=== PATIENT | male | born 1945 | race Caucasian/White ===

== ENCOUNTER 2016-12-22 07:17 | Day surgery (SDC) | payer MEDICARE, OTHER ==
[2016-12-22] MEDS ORDERED: LACTATED RINGERS 300 ML IV ONE (09:16)
[2016-12-22] MEDS ORDERED: MIDAZOLAM 2 MG/2 ML VIAL IVP ONE (09:16)
[2016-12-22] MEDS ORDERED: fentaNYL 100 MCG/2 ML VIAL IVP ONE (09:16)
[2016-12-22] MEDS ORDERED: LACTATED RINGERS 1,000 ML IV ONE (10:07)
[2016-12-22 10:41] VITALS: BP 103/73
== END 2016-12-22 07:18 | disposition home or self-care (01) ==
LOC: SDS 07:17
PROVIDERS: ATTEND Surgery
PROC: 0DBP8ZZ Excision of Rectum, Via Natural or Artificial Opening Endoscopic (ICD-10-PCS; 2016-12-22)
PROC: 0DBH8ZZ Excision of Cecum, Via Natural or Artificial Opening Endoscopic (ICD-10-PCS; principal; 2016-12-22 08:30)
DX: R19.5 Other fecal abnormalities (principal); K62.1 Rectal polyp; D12.0 Benign neoplasm of cecum; K64.8 Other hemorrhoids; Z87.891 Personal history of nicotine dependence; E78.5 Hyperlipidemia, unspecified; F41.9 Anxiety disorder, unspecified
CPT/HCPCS: 45385; J7120; 88305

== ENCOUNTER 2017-03-02 14:46 | Outpatient (CLI) | payer MEDICARE, OTHER ==
--- NOTE | 2017-03-03 08:47 | XRAY Report ---
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 FINDINGS: AP, lateral, oblique views of the right foot demonstrate osteoarthritic changes of the int erphalangeal joints and 5th metatarsophalangeal joint. There is no evidence of fracture or dislocati on. IMPRESSION: OSTEOARTHRITIS. JOB #: [id number] EXT JOB #:[id number]
== END 2017-03-02 14:47 | disposition home or self-care (01) ==
LOC: DI.S 14:46
PROVIDERS: ATTEND Nurse Practitioner Family
DX: M19.071 Primary osteoarthritis, right ankle and foot (principal)

== ENCOUNTER 2019-03-21 09:57 | Outpatient (CLI) | payer MEDICARE, OTHER ==
--- NOTE | 2019-03-21 16:17 | XRAY Report ---
Reason: PAIN IN RIGHT HIP, M25.551 Procedure Date: 03/21/2019 Accession Number: [id number] / [id number] Procedure: XRS - Hip w/Pelvis 2-3V RT CPT Code: FULL RESULT: EXAM: RIGHT HIP RADIOGRAPHY EXAM DATE: 03/21/2019 10:11 AM. CLINICAL HISTORY: PAIN IN RIGHT HIP, M25. 551. COMPARISON: None. TECHNIQUE: 2 views. FINDINGS: Bones: Normal. No fractures or bone lesion. Joints: Relatively symmetric mild narrowing of hip joints with marginal osteophytosis. Pubic symphysis and sacroiliac joints are unremarkable as seen. Soft Tissues: Vascular calcifications. IMPRESSION: Mild degenerative changes without fracture or dislocation detected. RADIA
== END 2019-03-21 09:58 | disposition home or self-care (01) ==
LOC: DI.S 09:57
PROVIDERS: ATTEND Physician Assistant
DX: M16.11 Unilateral primary osteoarthritis, right hip (principal)

== ENCOUNTER 2019-09-14 12:37 | Outpatient (CLI) | payer MEDICARE, OTHER ==
[2019-09-14] MEDS ORDERED: REGADENOSON 0.4 MG/5 ML SYRINGE IVP ONE ×2 (15:42→21:54)
--- NOTE | 2019-09-14 17:06 | CARDIAC PROCEDURE NOTE ---
DATE OF SERVICE: 09/14/2019 Physician: Sophia Edmond MD, [facility] INDICATION: Abnormal EKG, dyspnea on exertion. CARDIAC RISK FACTORS: Male gender, advanced age, family history of heart disease. DESCRIPTION OF PROCEDURE: After signing informed consent, the patient underwent a Lexiscan pharmaceutical stress test with nuclear myocardial perfusion imaging. RESTING HEART RATE: 92. PEAK HEART RATE: 108. RESTING BLOOD PRESSURE: 136/70. PEAK BLOOD PRESSURE: 111/69. Lexiscan was infused per protocol. The patient had no chest pain, only brief shortness of breath. Oxygen saturation was 98-99% on room air during the entire test. RESTING EKG: Normal sinus rhythm, within normal limits. EKG AT PEAK: New T-wave flattening in leads II, III, aVF, and V3 through V6. These T-wave changes resolved back to baseline after 1 minute. SUMMARY: 1. Normal resting EKG. 2. T-wave changes develop after pharmaceutical stress, these are consistent with ischemia. 3. Nuclear images reported separately. 4. This patient's coronary risk based on all the above: Moderate to High. cc: AMY Vega TD: 09/14/2019 16:22 MTDAjay
--- NOTE | 2019-09-15 11:08 | Nuclear Medicine Report ---
Reason: ABN EKG Procedure Date: 09/14/2019 Accession Number: [id number] / [id number] Procedure: NM - Myocardial Perfusion STR/RST CPT Code: Final Report FULL RESULT: EXAM: SINGLE-ISOTOPE PHARMACOLOGICAL STRESS TEST WITH REGADENOSON. SINGLE-ISOTOPE AND ONE-DAY REST/STRESS MYOCARDIAL PERFUSION SCANS WITH TOMOGRAPHIC IMAGING, QUANTITATIVE ANALYSIS, WALL MOTION ANALYSIS AND CALCULATION OF EJECTION FRACTION. EXAM DATE: 09/14/2019 05:15 PM. CLINICAL HISTORY: ABN EKG. COMPARISON: None. TECHNIQUE: After the intravenous administration of 10.2 mCi of Tc-99m sestamibi, a rest myocardial perfusion scan was done with tomography. Motion correction was applied when appropriate. After an appropriate delay, pharmacological stress was performed with the infusion of 0.4 mg regadenoson per protocol. According to protocol, 41.7 mCi of Tc-99m sestamibi was injected for stress myocardial perfusion scan. Motion correction was applied when appropriate. Gated tomographic images were obtained for wall motion analysis and computation of left ventricular ejection fraction. FINDINGS: Perfusion images: Left ventricular chamber size appears normal at rest and unchanged at stress. No convincing fixed perfusion deficits. No convincing reversible perfusion deficits. SSS 0, SRS 0, SDS 0. Gated images: No convincing focal wall motion abnormality. Calculated left ventricular EDV 86 mL, ESV 29 mL. The left ventricular ejection fraction is estimated at 67% (normal > 50%). IMPRESSION: 1. No convincing reversible perfusion deficits to indicate stress-induced ischemia. 2. No convincing fixed perfusion deficits. 3. Left ventricular ejection fraction of 2 7% (normal > 50%). Please correlate findings with stress ECG tracings and procedure notes. RADIA
== END 2019-09-14 12:38 | disposition home or self-care (01) ==
LOC: DI 12:37
PROVIDERS: ATTEND Nurse Practitioner Family
DX: I25.9 Chronic ischemic heart disease, unspecified (principal); R06.09 Other forms of dyspnea; Z82.49 Family history of ischemic heart disease and other diseases of the circulatory system
CPT/HCPCS: 78452; 93017; A9500; J2785

== ENCOUNTER 2019-10-20 14:49 | Outpatient (CLI) | payer MEDICARE, OTHER ==
--- NOTE | 2019-10-20 22:41 | XRAY Report ---
Reason: DYSPNEA Procedure Date: 10/20/2019 Accession Number: [id number] / [id number] Procedure: XR - Chest 2 View X-Ray CPT Code: 18216 Final Report FULL RESULT: EXAM: CHEST RADIOGRAPHY EXAM DATE: 10/20/2019 02:57 PM. CLINICAL HISTORY: Dyspnea for several months. COMPARISON: None. TECHNIQUE: 2 views. FINDINGS: Lungs/Pleura: There is a small area of somewhat linear, irregular opacity in the lateral aspect of the right upper lung, projecting between the right posterior fourth and fifth ribs. This measures approximately 2.6 cm in length. No correlate identified on lateral view. Lungs are otherwise clear. No pleural effusion or pneumothorax. Mediastinum: Cardiomediastinal silhouette is within normal limits. Pulmonary vasculature is unremarkable. Other: Moderate-severe multilevel degenerative disk disease present in the thoracic spine. IMPRESSION: Somewhat linear, irregular opacity projecting over the lateral right upper lung is nonspecific. It may represent a pulmonary parenchymal finding (such as infiltrate or scarring) or density in the overlying soft tissues. Follow-up chest CT is recommended in 6-8 weeks. Given the relative chronicity of the patient's symptoms, consider noncontrast chest CT for further evaluation. RADIA
== END 2019-10-20 14:50 | disposition home or self-care (01) ==
LOC: DI 14:49
PROVIDERS: ATTEND Internal Medicine Cardiovascular Disease
DX: R91.8 Other nonspecific abnormal finding of lung field (principal)
CPT/HCPCS: 71046

== ENCOUNTER 2019-11-17 10:43 | Outpatient (CLI) | payer MEDICARE, OTHER ==
--- NOTE | 2019-11-18 02:45 | CT Report ---
Reason: ABNORMAL FINDINGS Procedure Date: 11/17/2019 Accession Number: [id number] / [id number] Procedure: CT - CHEST WO CPT Code: Final Report FULL RESULT: EXAM: CT CHEST EXAM DATE: 11/17/2019 10:59 AM. CLINICAL HISTORY: Follow-up of abnormal findings on CXR. COMPARISONS: CXR dated 10/20/2019. TECHNIQUE: Routine helical CT imaging was performed through the chest. IV contrast: None. Reconstructions: Coronal and sagittal. In accordance with CT protocol optimization, one or more of the following dose reduction techniques were utilized for this exam: automated exposure control, adjustment of mA and/or KV based on patient size, or use of iterative reconstructive technique. FINDINGS: Lungs/Pleura: Mild biapical scarring and calcifications. Mild centrilobular emphysema. No focal consolidation, pulmonary edema or significant bronchial wall thickening. Right lower lobe 5 mm pulmonary nodule. Left upper lobe 2 mm pulmonary nodule. Punctate calcification in left upper lobe near apex. No pleural effusion or pneumothorax. Mediastinum: Normal cardiac size. No pericardial effusion. Atherosclerotic vascular disease including coronary artery disease. No thoracic aortic aneurysm. No mediastinal lymphadenopathy by CT size criteria. Bones: Bones are mildly osteopenic. Osseous degenerative changes are present. No acute bony findings. Visualized Abdomen: No acute findings in the visualized upper abdomen. Other: None. IMPRESSION: 1. No abnormality corresponding to recent radiographic finding. No acute cardiopulmonary findings on noncontrast CT. 2. Mild central upper emphysema and biapical scarring. 3. Right lower lobe 5 mm pulmonary nodule and left upper lobe 2 mm pulmonary nodule. If high-risk patient, follow-up CT at 12 months is optional per Fleischner guidelines. 4. Atherosclerotic vascular disease including coronary artery calcifications. No thoracic aortic aneurysm. RADIA
== END 2019-11-17 10:44 | disposition home or self-care (01) ==
LOC: DI 10:43
PROVIDERS: ATTEND Physician Assistant
DX: J43.9 Emphysema, unspecified (principal); R91.8 Other nonspecific abnormal finding of lung field; I25.10 Atherosclerotic heart disease of native coronary artery without angina pectoris; I70.90 Unspecified atherosclerosis
CPT/HCPCS: 71250

== ENCOUNTER 2020-06-15 15:01 | Outpatient (CLI) | payer MEDICARE, OTHER ==
--- NOTE | 2020-06-15 16:49 | XRAY Report ---
PROCEDURE: Foot 3 View RT INDICATIONS: BUNION OF RIGHT FOOT TECHNIQUE: 3 views of the foot were acquired. COMPARISON: X-ray foot 03/02/2017 FINDINGS: Bones: No fractures or dislocations. No suspicious bony lesions. Mild angulation and IP degenerati ve narrowing at the fifth MTP joint. Overall appearance is stable compared to prior exam. Scattered a reas of IP degenerative narrowing particularly at the DIP joints are again noted. Soft tissues: No tibiotalar joint effusion. Achilles tendon appears normal. IMPRESSION: Degenerative changes as above, relatively stable compared to prior exam. Reviewed by: Jammie Cooley MD on 06/15/2020 4:48 PM PST Approved by: Jammie Cooley MD on 06/15/2020 4:48 PM PST Station ID: [id number]
== END 2020-06-15 15:02 | disposition home or self-care (01) ==
LOC: DI.S 15:01
PROVIDERS: ATTEND Physician Assistant
DX: M19.071 Primary osteoarthritis, right ankle and foot (principal)

== ENCOUNTER 2021-07-20 09:42 | Outpatient (CLI) | payer MEDICARE, OTHER ==
--- NOTE | 2021-07-22 10:45 | CT Report ---
PROCEDURE: CHEST WO INDICATIONS: MULTIPLE LUNG NODULES TECHNIQUE: Noncontrast 1mm axial images were acquired from the pulmonary apices to the posterior costophrenic an gles. Axial 5 mm soft tissue kernel reconstructions were performed as well as 8 mm axial MIP and cor onal and sagittal 5 mm reformations. For radiation dose reduction, the following was used: automate d exposure control, adjustment of mA and/or kV according to patient size. COMPARISON: 11/17/2019 FINDINGS: Image quality: Good. There is motion at the lung bases.. Lungs and pleura: A 6 mm solid subpleural right lower lobe pulmonary nodule, 4/201 and 4 mm left upp er lobe pulmonary nodule, 4/172, are stable. A 3 mm lateral right middle lobe nodule, 4/196, subpleur al anterior right middle lobe nodule measuring 4 mm, 4/234 and an apical left upper lobe nodule, /52 are stable, not previously mentioned. A small patch of tree-in-bud nodularity present laterally in t he right upper lobe at a midlung level is new. No dense air space opacities. No pleural effusions or pneumothorax. Central and peripheral airways are patent and normal in caliber. Mediastinum: Heart size is normal. Moderate coronary artery calcification. No pericardial effusion. No mediastinal adenopathy by size criteria. Thoracic aorta and central pulmonary arteries are norm al in size. Esophagus is normal in caliber. No hiatal hernia. Bones and chest wall: No suspicious bony lesions. Multilevel degenerative disc changes throughout t he thoracic spine. No vertebral body compression fractures. No axillary or supraclavicular adenopath y by size criteria. The thyroid is normal in size and there are no incidental findings. Abdomen: Visualized upper abdominal solid organs and bowel loops appear normal in the absence of con trast. IMPRESSION: 1. Multiple stable bilateral lung nodules, and 1 mm of growth of the largest right lower lobe lung no dule. Follow-up chest CT in 6 months is recommended to document greater than 2 years of stability of most nodules and continued surveillance of largest right lower lobe nodule. 2. Small area of nodularity in the right upper lobe is most likely postinflammatory/postinfectious. 3. Moderate coronary artery calcification. Reviewed by: Radha Mooney MD on 07/22/2021 10:44 AM PST Approved by: aRdha Mooney MD on 07/22/2021 10:44 AM PST Station ID: [id number]
== END 2021-07-20 09:43 | disposition home or self-care (01) ==
LOC: DI 09:42
PROVIDERS: ATTEND Physician Assistant
DX: R91.8 Other nonspecific abnormal finding of lung field (principal); I25.10 Atherosclerotic heart disease of native coronary artery without angina pectoris

== ENCOUNTER 2022-04-09 07:10 | Day surgery (SDC) | payer MEDICARE, OTHER ==
--- NOTE | 2022-04-09 07:07 | ANESTHESIA ---
Pre-Anesthesia VS, & Labs - Diagnosis screening - Procedure colonoscopy Height: 5 ft 11 in - NPO Last Fluid Intake: am prep Home Medications and Allergies Home Medications: Ambulatory Orders Albuterol Sulfate [Proair Hfa Inhaler] 1 - 2 puffs INH Q4H PRN 03/31/22 Albuterol Sulfate [Proair Hfa Inhaler] 1 - 2 puffs INH Q4H PRN 03/31/22 Allergies/Adverse Reactions: Allergies Allergy/AdvReac Type Severity Reaction Status Date / Time No Known Drug Allergies Allergy Verified 12/19/16 13:34 Anes History & Medical History - Anesthetic History Anesthesia Complications: reports: No previous complications Family history of Anesthesia Complications: Denies Family history of Malignant Hyperthermia: Denies - Medical History Cardiovascular: reports: High cholesterol Pulmonary: reports: COPD Gastrointestinal: reports: Colon polyps Urinary: reports: None Musculoskeletal: reports: Osteoarthritis Endocrine/Autoimmune: reports: None Skin: reports: None - Surgical History General: reports: Colonoscopy, Other Eyes Ears Nose Throat (EENT): reports: Other Exam General: Alert, Oriented x3, Cooperative Mallampati classification: II Thyromental Distance: greater than 6 cm Respiratory: Lungs clear, Normal breath sounds, No respiratory distress Mental/Cognitive Status: Alert/Oriented X3, Normal for patient Cognitive Status: Within normal limits Plan Anesthesia Type: Total IV Consent for Procedure(s) Verified and Reviewed: Yes Code Status: Attempt Resuscitation ASA classification: 2-Mild systemic disease Is this case an emergency?: No
[~2022-04-09 07:10] MED LIST: PROPOFOL 500 MG/50 ML 0 MG/0 ML VIAL ONE
--- NOTE | 2022-04-09 07:24 | ANESTHESIA ---
Pre-Anesthesia VS, & Labs - Diagnosis screening - Procedure colonoscopy Height: 5 ft 11 in - NPO >8 hours Last Fluid Intake: am prep Home Medications and Allergies Home Medications: Ambulatory Orders Albuterol Sulfate [Proair Hfa Inhaler] 1 - 2 puffs INH Q4H PRN 03/31/22 Albuterol Sulfate [Proair Hfa Inhaler] 1 - 2 puffs INH Q4H PRN 03/31/22 Allergies/Adverse Reactions: Allergies Allergy/AdvReac Type Severity Reaction Status Date / Time No Known Drug Allergies Allergy Verified 04/09/22 07:40 Anes History & Medical History - Anesthetic History Anesthesia Complications: reports: No previous complications Family history of Anesthesia Complications: Denies Family history of Malignant Hyperthermia: Denies - Medical History Cardiovascular: reports: High cholesterol Pulmonary: reports: COPD Gastrointestinal: reports: Colon polyps Urinary: reports: None Musculoskeletal: reports: Osteoarthritis Endocrine/Autoimmune: reports: None Skin: reports: None - Surgical History General: reports: Colonoscopy, Other Eyes Ears Nose Throat (EENT): reports: Other Exam General: Alert, Oriented x3, Cooperative Dental: WNL Mouth Openin Fingerbreadth Mallampati classification: II Thyromental Distance: 4-6 cm Respiratory: Lungs clear, Normal breath sounds, No respiratory distress Cardiovascular: Regular rate Plan Anesthesia Type: Total IV Consent for Procedure(s) Verified and Reviewed: Yes Code Status: Attempt Resuscitation ASA classification: 2-Mild systemic disease Is this case an emergency?: No
[2022-04-09] MEDS ORDERED: LACTATED RINGERS 1,000 ML IV ONE ×2 (07:37→08:55)
[2022-04-09] MEDS ORDERED: PROPOFOL 500 MG/50 ML 500 MG/50 ML VIAL ONE (08:02)
[2022-04-09] MEDS ORDERED: LIDOCAINE-MPF 2% 5 ML VIAL ONE (08:43)
[2022-04-09] MEDS ORDERED: GLYCOPYRROLATE 1 MG/5 ML VIAL ONE (08:50)
[2022-04-09 09:39] VITALS: BP 104/60
--- NOTE | 2022-04-09 09:46 | ANESTHESIA POST OP EVALUATION ---
Anesthesia Post Eval - Post Anesthesia Eval Vitals: Last Vital Signs Temp 36.6 C 04/09/22 09:35 Pulse 73 04/09/22 09:35 Resp 16 04/09/22 09:35 BP 104/60 04/09/22 09:35 Pulse Ox 100 04/09/22 09:35 CV Function Including HR & BP: Stable Pain Control: Satisfactory Nausea & Vomiting: Negative Mental Status: Baseline Respiratory Status: Airway Patent Hydration Status: Satisfactory Anesthesia Complications: None
== END 2022-04-09 07:11 | disposition home or self-care (01) ==
LOC: SDS 07:10
PROVIDERS: ATTEND Surgery
DX: Z12.11 Encounter for screening for malignant neoplasm of colon (principal); K64.8 Other hemorrhoids; Z80.3 Family history of malignant neoplasm of breast; Z80.42 Family history of malignant neoplasm of prostate; Z80.9 Family history of malignant neoplasm, unspecified; Z86.010 Personal history of colon polyps; Z87.891 Personal history of nicotine dependence

== ENCOUNTER 2022-05-11 15:59 | Outpatient (CLI) | payer MEDICARE, OTHER | END 2022-05-11 16:00 | disposition critical access hospital (66) | LOC: EMS 15:59 | DX: S61.011A Laceration without foreign body of right thumb without damage to nail, initial encounter (principal); W31.2XXA Contact with powered woodworking and forming machines, initial encounter; Y92.009 Unspecified place in unspecified non-institutional (private) residence as the place of occurrence of the external cause | CPT/HCPCS: A0425; A0429 ==

== ENCOUNTER 2022-05-11 16:32 | Emergency (ER) | payer MEDICARE, OTHER ==
--- NOTE | 2022-05-11 16:34 | ED Physician Documentation ---
PD HPI UPPER EXT INJURY - Stated complaint Stated Complaint: THUMB LAC - History obtained from History obtained from: Patient, EMS - History of Present Illness Location: Right, Finger (thumb at IP joint.) Type of injury: Laceration (Working with a table saw and he is not sure exactly what happened but the board bucked and his thumb went through into the blade. Laceration with significant bleeding. He called EMS.) Where injury occurred: Home Timing - onset: Today (shortly [employer]) Timing - details: Abrupt onset, Still present Worsened by: Moving, Palpating Associated symptoms: Weakness, Numbness (in distal thumb) Contributing factors: No: Anticoagulated Similar symptoms before: Has not had sx before Recently seen: Not recently seen Review of Systems Constitutional: denies: Fever, Chills Nose: denies: Rhinorrhea / runny nose, Congestion Throat: denies: Sore throat Respiratory: denies: Cough PD PAST MEDICAL HISTORY - Past Medical History Cardiovascular: High cholesterol Respiratory: COPD Endocrine/Autoimmune: None GI: Colon polyps : None HEENT: Chronic vision loss, Dental implants, Other Psych: None Musculoskeletal: Osteoarthritis, Other (he is right hand dominant.) Derm: None - Past Surgical History General: Colonoscopy, Other HEENT: Other - Present Medications Home Medications: Ambulatory Orders Medication Instructions Recorded Confirmed cephALEXin [Keflex] 500 mg PO Q6H #20 cap 05/11/22 oxyCODONE/ACET 5/325 [Percocet 5 1 each PO Q4-6H #14 tablet 05/11/22 mg/325 mg] - Allergies Allergies/Adverse Reactions: Allergies Allergy/AdvReac Type Severity Reaction Status Date / Time No Known Drug Allergies Allergy Verified 04/09/22 07:40 PD ED PE NORMAL - Vitals Vital signs reviewed: Yes - General General: Alert and oriented X 3, Well developed/nourished - Derm Derm: Normal color, Warm and dry - Extremities Extremities: Other (The left thumb shows a deep laceration consistent with table saw injury of the right thumb at the IP joint. It extends through the bone and apparent flexor and extensor tendons. There is still tissue intact on the radial volar side. Capillary refill is present in the tip segment of the thumb.) - Neuro Neuro: Alert and oriented X 3, Normal speech, Other (Motor and sensory deficit noted at the level of the laceration. The distal segment of the thumb is loose held by soft tissue only. No flexion or extension ability. No sensation to touch or pinprick distally.) Results - Vitals Vitals: Vital Signs - 24 hr 05/11/22 05/11/22 05/11/22 16:42 18:44 20:00 Temperature 37.2 C 36.7 C Heart Rate 74 70 75 Respiratory 18 19 16 Rate Blood Pressure 150/84 H 132/3 H 146/91 H O2 Saturation 95 96 96 Oxygen O2 Source Room air - Labs Labs: Laboratory Tests 05/11/22 05/11/22 05/11/22 16:58 16:58 18:37 WBC 5.5 RBC 4.15 L Hgb 12.9 L Hct 39.7 L MCV 95.7 H MCH 31.1 H MCHC 32.5 RDW 13.3 Plt Count 212 MPV 9.2 Neut # (Auto) 3.4 Lymph # (Auto) 1.3 L [place] # (Auto) 0.5 Eos # (Auto) 0.1 Baso # (Auto) 0.0 Absolute Nucleated RBC 0.00 Nucleated RBC % 0.0 Sodium 138 Potassium 3.8 Chloride 100 L Carbon Dioxide 30 Anion Gap 8.0 BUN 14 Creatinine 0.7 Estimated GFR (MDRD) 109 Glucose 131 H Calcium 9.0 SARS-CoV-2 (PCR) NOT DETECTED - Rads (name of study) right thumb Radiology: Prelim report reviewed (comminuted fracture at distal phalanx/IP joint of right thumb. ), See rad report Procedures - Laceration (location) right thumb Length in cm: 4 Wound type: Stellate, Into muscle, Clean, Exposure of bone Neurovascular status: Vascular intact (cap refill present in distal phalanx segment.) Anesthesia: Lidocaine 2%, Marcaine 0.5%, Other (local and digital block.) Wound preparation: Irrigated copiously NS, Wound explored, To the base Skin layer closure: Nylon, Interrupted, Size #-0 - enter number (4), Other (distal lacerated phalanx approximated into position with sutures.) Other: Dressing applied, Tetanus booster given PD MEDICAL DECISION MAKING - ED course Complexity details: reviewed results, considered differential (The patient has a injury through the IP joint of the thumb involving the bone and flexor tendons. There does seem to be vascularity with capillary refill in the distal segment coming from the radial side.), d/w patient, d/w technology sales consultant ([facility] calling trauma center hand surgeon for advice/follow up versus transfer. ) ED course: at shift change, we are still awaiting call back from Hand Surgery at [facility]. Departure - Departure Disposition: 01 Home, Self Care Clinical Impression: Contact with powered saw as cause of accidental injury Thumb laceration Qualifiers: Encounter type: initial encounter Damage to nail status: with damage Foreign body presence: without foreign body Laterality: right Qualified Code(s): S61.111A - Laceration without foreign body of right thumb with damage to nail, initial encounter Condition: Stable Record reviewed to determine appropriate education?: Yes Instructions: ED Laceration Hand Follow-Up: [facility] [Provider Group] Prescriptions: cephALEXin [Keflex] 500 mg PO Q6H #20 cap oxyCODONE/ACET 5/325 [Percocet 5 mg/325 mg] 1 each PO Q4-6H #14 tablet Comments: You were evaluated for an injury to your right thumb. The wound was cleaned and loosely sutured. You will need close follow-up with a hand surgeon as you have injury to the bone as well as the tendons of the digit. I have spoken to the hand surgeon at [facility], Dr. Howard. The hand clinic office will call you tomorrow or Thursday for close follow-up. Their phone number is [phone]. Please call them at Thursday afternoon if you have not heard from them. We have applied a splint which she should continue to keep on it. I have also sent a prescription for 5 days of an antibiotic called Cait to [facility] in [place]. I will also send a prescription for narcotic pain medication. [facility] ([facility] [place]) Location Address: [facility], 6th Floor [address] [place] [address] (HAND) Please return to the emergency department with any concerning symptoms such as increased pain, bleeding. I am prescribing a short course of narcotic pain medication for you. These are potentially dangerous and addictive medications that should be used carefully. These medications may constipate you. Take an yacb-zng-wbrfnuu stool softener (docusate) twice daily with plenty of water while taking these medications. If you go 24 hours without a bowel movement, take izfb-zsg-aqopurj miralax, per package instructions. Do not drink or drive while taking these medications. If you received narcotic or sedating medications while in the emergency department, do not drive for 24 hours. Store this medication in a safe, secure place and out of reach of children. It is a violation of federal law to give or sell this medication to another person or to use in a manner other than prescribed. The ED will not refill narcotic prescriptions, including prescriptions lost or stolen. To dispose of unwanted medications: 1. [facility] at [address] in [place] has a medication drop box. They accept prescription medications (in pill form) Thursday through Thursday 9:00 a.m. to 5:00 p.m. 2. The [facility] [employer] accepts prescription medications (in pill form only) for disposal year round. Call for more information. 3. Contact the [facility] for the next [facility] sponsored prescription drug collection event. , [phone], or [phone]; Note that many narcotic pain relievers also contain Tylenol/acetaminophen. Please ensure that your total dose of acetaminophen from all sources does not exceed 3 g (3000 mg) per day. Discharge Date/Time: 05/11/22 20:20
[2022-05-11] MEDS ORDERED: KETOROLAC 15 MG/ML VIAL IVP STA (16:45)
[2022-05-11] MEDS ORDERED: ceFAZolin 1 GM in SODIUM CHLORIDE 0.9% MINIBAG 100 ML IV STA (16:45)
[2022-05-11] MEDS ORDERED: TETANUS/DIPHTHERIA/PERTUSSIS 0.5 ML SYRINGE IM ONE (16:46)
[2022-05-11 17:04] LABS: BASOPHILS % (AUTO) 0.5 %; EOSINOPHILS # (AUTO) 0.1 10^3/uL (0.0-0.7); EOSINOPHILS % (AUTO) 2.6 %; HCT - HEMATOCRIT 39.7 % (42.0-52.0); HGB - HEMOGLOBIN 12.9 g/dL (14.0-18.0); LYMPHOCYTES # (AUTO) 1.3 10^3/uL (1.5-3.5); LYMPHOCYTES % (AUTO) 24.5 %; MEAN CORPUSCULAR HEMOGLOBIN 31.1 pg (27.0-31.0); MEAN CORPUSCULAR HGB CONC 32.5 g/dL (32.0-36.0); MEAN CORPUSCULAR VOLUME 95.7 fL (80.0-94.0); MEAN PLATELET VOLUME 9.2 fL (7.4-11.4); MONOCYTES # (AUTO) 0.5 10^3/uL (0.0-1.0); MONOCYTES % (AUTO) 9.7 %; NEUTROPHILS # (AUTO) 3.4 10^3/uL (1.5-6.6); NEUTROPHILS % (AUTO) 62.3 %; PLT - PLATELET COUNT 212 10^3/uL (130-450); RED BLOOD COUNT 4.15 10^6/uL (4.70-6.10); RED CELL DISTRIBUTION WIDTH 13.3 % (12.0-15.0); WHITE BLOOD COUNT 5.5 x10^3/uL (4.8-10.8)
[2022-05-11] MEDS ORDERED: ceFAZolin 1 GM VIAL ONE (17:06)
[2022-05-11 17:12] LABS: CREATININE 0.7 mg/dL (0.6-1.2); POTASSIUM 3.8 mmol/L (3.5-5.0)
[2022-05-11] MEDS ORDERED: HYDROmorphone 1 MG/ML CARPUJECT IVP STA (17:47)
--- NOTE | 2022-05-11 17:49 | XRAY Report ---
PROCEDURE: Finger(s) RT INDICATIONS: thumb right table saw injury TECHNIQUE: AP hand, 2 views of the first finger(s) acquired. COMPARISON: None FINDINGS: There is a angulated fracture through the mid first finger phalanx with lateral angulation of distal fracture fragment. The soft tissues are macerated, fracture through the first distal phalangeal tuft noted as well. Degenerative changes at the first carpometacarpal and triscaphe joint. IMPRESSION: Soft tissue maceration with fractures through the first proximal phalanx and distal phalangeal tuft Reviewed by: Praneeth Laurent MD on 05/11/2022 4:48 PM AKLA Approved by: Praneeth Laurent MD on 05/11/2022 4:48 PM AKDT Station ID: [id number]
[2022-05-11] MEDS ORDERED: oxyCODONE/ACET 5/325 Prepack 4 PO STA (20:03)
[2022-05-11 20:04] VITALS: BP 146/91
--- NOTE | 2022-05-11 20:06 | ED Physician Documentation ---
ED Addendum - Addendum Addendum: 05/11/22 20:03 D/W Dr. Howard (Hand surgeon, [facility]). As distal portion appears still perfused he recommends close outpatient follow-up. He recommends placing the patient in a thumb spica splint, 5 days of Keflex. The hand clinic will call the patient. Their phone number is [phone]. I reviewed these recommendations with the patient and he is comfortable with this plan. Departure - Departure Disposition: 01 Home, Self Care Clinical Impression: Contact with powered saw as cause of accidental injury Thumb laceration Qualifiers: Encounter type: initial encounter Damage to nail status: with damage Foreign body presence: without foreign body Laterality: right Qualified Code(s): S61.111A - Laceration without foreign body of right thumb with damage to nail, initial encounter Condition: Stable Instructions: ED Laceration Hand Follow-Up: [facility] [Provider Group] Prescriptions: cephALEXin [Keflex] 500 mg PO Q6H #20 cap oxyCODONE/ACET 5/325 [Percocet 5 mg/325 mg] 1 each PO Q4-6H #14 tablet Comments: You were evaluated for an injury to your right thumb. The wound was cleaned and loosely sutured. You will need close follow-up with a hand surgeon as you have injury to the bone as well as the tendons of the digit. I have spoken to the hand surgeon at [facility], Dr. Howard. The hand clinic office will call you tomorrow or Thursday for close follow-up. Their phone number is [phone]. Please call them at Thursday afternoon if you have not heard from them. We have applied a splint which she should continue to keep on it. I have also sent a prescription for 5 days of an antibiotic called Keflex to [facility] in [place]. I will also send a prescription for narcotic pain medication. [facility] ([facility]) Location Address: [facility], 6th Floor [address] [place] [address] (HAND) Please return to the emergency department with any concerning symptoms such as increased pain, bleeding. I am prescribing a short course of narcotic pain medication for you. These are potentially dangerous and addictive medications that should be used carefully. These medications may constipate you. Take an dzjw-gbr-qxxpaxa stool softener (docusate) twice daily with plenty of water while taking these medications. If you go 24 hours without a bowel movement, take qees-gtv-[id number] miralax, per package instructions. Do not drink or drive while taking these medications. If you received narcotic or sedating medications while in the emergency department, do not drive for 24 hours. Store this medication in a safe, secure place and out of reach of children. It is a violation of federal law to give or sell this medication to another person or to use in a manner other than prescribed. The ED will not refill narcotic prescriptions, including prescriptions lost or stolen. To dispose of unwanted medications: 1. [facility] at [address] [address] [facility] in [place] has a medication drop box. They accept prescription medications (in pill form) Thursday through Thursday 9:00 a.m. to 5:00 p.m. 2. The [facility] accepts prescription medications (in pill form only) for disposal year round. Call for more information. 3. Contact the [facility] for the next [facility] sponsored prescription drug collection event. , [phone], or [phone]; Note that many narcotic pain relievers also contain Tylenol/acetaminophen. Please ensure that your total dose of acetaminophen from all sources does not exceed 3 g (3000 mg) per day.
== END 2022-05-11 20:20 | disposition home or self-care (01) ==
LOC: EDUNIT# → ED 16:32
DX: S62.511B Displaced fracture of proximal phalanx of right thumb, initial encounter for open fracture (principal); S62.521B Displaced fracture of distal phalanx of right thumb, initial encounter for open fracture; S66.021A Laceration of long flexor muscle, fascia and tendon of right thumb at wrist and hand level, initial encounter; S66.221A Laceration of extensor muscle, fascia and tendon of right thumb at wrist and hand level, initial encounter; S61.111A Laceration without foreign body of right thumb with damage to nail, initial encounter; W31.2XXA Contact with powered woodworking and forming machines, initial encounter; Y93.89 Activity, other specified; Y92.009 Unspecified place in unspecified non-institutional (private) residence as the place of occurrence of the external cause; Z23 Encounter for immunization
CPT/HCPCS: 12002; 36415; 73140; 80048; 85025; 87635; 90471; 90715; 96365; 96375; 99284; J1170; 13132

== ENCOUNTER 2023-04-24 08:00 | Outpatient (CLI) | payer MEDICARE, OTHER ==
--- NOTE | 2023-04-24 15:42 | XRAY Report ---
PROCEDURE: Finger(s) LT INDICATIONS: LEFT INDEX FINGER PAIN TECHNIQUE: AP hand, 2 views of the second finger(s) acquired. COMPARISON: None. FINDINGS: Bones: Minimally displaced fracture through second distal phalangeal tuft is seen. No suspicious bon y lesions. Soft tissues: Soft tissue swelling surrounding distal portion of second digit is noted. Possible fore ign body adjacent to lateral aspect of second proximal phalangeal shaft. IMPRESSION: Minimally displaced second distal phalangeal tuft fracture. Possible foreign body in lateral second digit soft tissue as above. Reviewed by: Eric Belle MD on 04/24/2023 3:41 PM PDT Approved by: Eric Belle MD on 04/24/2023 3:41 PM PDT Station ID: [id number]
== END 2023-04-24 23:59 | disposition home or self-care (01) ==
LOC: DI.S 08:00
PROVIDERS: ATTEND Physician Assistant
DX: S62.631A Displaced fracture of distal phalanx of left index finger, initial encounter for closed fracture (principal)

== ENCOUNTER 2023-09-04 14:51 | Outpatient (CLI) | payer MEDICARE, OTHER ==
--- NOTE | 2023-09-07 08:52 | CT Report ---
PROCEDURE: Chest WO INDICATIONS: LUNG NODULES TECHNIQUE: A CT scan of the chest was performed. Intravenous contrast media was not administered. Images were re corded and evaluated at appropriate window settings. Reformats: axial MIP of the chest, coronal and s agittal. For radiation dose reduction, the following was used: automated exposure control, adjustment of mA and/or kV according to patient size. COMPARISON: CT chest dated 07/20/2021, 03/29/2022. FINDINGS: Image quality: Excellent. Lungs and pleura: Emphysematous lung changes.. No pleural effusions. No pneumothorax. Lungs and pleura: Moderate emphysematous change. No new or enlarging pulmonary nodules. Again a few s mall pulmonary nodules seen; -Right upper lobe solid 0.3 cm, (82) -Right lower lobe pulmonary nodule measuring 0.5 cm, (/79) -Left upper lobe 0.4 cm, (4/60) Unchanged -Right lower lobe nodule, solid, 5 mm (135/4) unchanged Mediastinum: Heart size is normal. No pericardial effusion. No large vessel abnormality. No mediastin al adenopathy by size criteria. Coronary artery calcifications. Chest wall and lower neck: No thyroid nodule seen that requires ultrasound evaluation. No axillary or supraclavicular adenopathy by size. Bones: DJD, scoliosis of the spine, DISH Upper Abdomen: 2.4 cm left renal cystic lesion, likely a simple cyst, but incompletely evaluated with out IV contrast. IMPRESSION: No new or enlarging pulmonary nodule seen. LUNGS RADS 2 BENIGN. Continue screening low dose CT of the chest in 12 months if meets criteria. Reviewed by: David Hector MD on 09/07/2023 8:51 AM PST Approved by: David Hector MD on 09/07/2023 8:51 AM PST Station ID: [id number]
== END 2023-09-04 14:52 | disposition home or self-care (01) ==
LOC: DI 14:51
PROVIDERS: ATTEND Registered Nurse
DX: R91.8 Other nonspecific abnormal finding of lung field (principal); J43.9 Emphysema, unspecified

== ENCOUNTER 2023-11-05 13:56 | Outpatient (CLI) | payer MEDICARE, OTHER ==
--- NOTE | 2023-11-05 14:28 | XRAY Report ---
PROCEDURE: Foot 3+V LT INDICATIONS: LEFT FOOT PAIN TECHNIQUE: 3 views of the foot were acquired. COMPARISON: None. FINDINGS: Bones: No fractures or dislocations. Mild hallux valgus angulation of the first MTP with medial buni on formation. Mild interphalangeal joint degeneration. No suspicious bony lesions. Soft tissues: No tibiotalar joint effusion. Achilles tendon appears normal. IMPRESSION: 1.No acute bony abnormality. 2.Mild interphalangeal joint degeneration. 3.Mild hallux valgus angulation of the first MTP with medial bunion formation. Reviewed by: Jose York MD on 11/05/2023 2:27 PM PDT Approved by: Jose York MD on 11/05/2023 2:27 PM PDT Station ID: [id number]
== END 2023-11-05 13:57 | disposition home or self-care (01) ==
LOC: DI 13:56
PROVIDERS: ATTEND Physician Assistant Medical
DX: M19.072 Primary osteoarthritis, left ankle and foot (principal); M20.12 Hallux valgus (acquired), left foot; M21.612 Bunion of left foot

== ENCOUNTER 2024-02-29 17:54 | Outpatient (CLI) | payer MEDICARE, OTHER | END 2024-02-29 23:59 | disposition critical access hospital (66) | LOC: EMS 17:54 | DX: R07.89 Other chest pain (principal); R06.09 Other forms of dyspnea | CPT/HCPCS: A0425; A0429 ==

== ENCOUNTER 2024-02-29 18:19 | Emergency (ER) | payer MEDICARE, OTHER ==
--- NOTE | 2024-02-29 18:24 | ED Physician Documentation ---
PD HPI CHEST PAIN - Stated complaint Stated Complaint: CHEST DISCOMFORT - History obtained from History obtained from: Patient, EMS - Additional information Additional information: 79-year-old gentleman with history of COPD but no heart problems. 2 days ago while cutting a tree down he became inappropriately fatigued with a hard to describe sensation "not pain" in the left chest with more shortness of breath and fatigue than usual. He denies pedal edema or calf pain. He went to urgent care and had an EKG showing a sinus arrhythmia. Patient notes he has chronic "irregular" heartbeat. He received aspirin on the way here. No recent travel. PD PAST MEDICAL HISTORY - Past Medical History Cardiovascular: High cholesterol Respiratory: COPD Endocrine/Autoimmune: None GI: Colon polyps : None HEENT: Chronic vision loss, Dental implants, Other Psych: None Musculoskeletal: Osteoarthritis, Other (he is right hand dominant.) Derm: None - Past Surgical History General: Colonoscopy, Other HEENT: Other - Present Medications Home Medications: Ambulatory Orders Medication Instructions Recorded Confirmed cephALEXin [Keflex] 500 mg PO Q6H #20 cap 05/11/22 oxyCODONE/ACET 5/325 [Percocet 5 1 each PO Q4-6H #14 tablet 05/11/22 mg/325 mg] Albuterol Sulf [Ventolin Hfa 1 - 2 puffs INH Q4HR PRN #1 each 02/29/24 Inhaler] - Allergies Allergies/Adverse Reactions: Allergies Allergy/AdvReac Type Severity Reaction Status Date / Time No Known Drug Allergies Allergy Verified 04/09/22 07:40 PD ED PE NORMAL - Vitals Vital signs reviewed: Yes - General General: Alert and oriented X 3, No acute distress - Neck Neck: Supple, no meningeal sign - Cardiac Cardiac: RRR, No murmur - Respiratory Respiratory: No respiratory distress, Clear bilaterally - Abdomen Abdomen: Non tender, Non distended - Extremities Extremities: No edema, No calf tenderness / cord - Neuro Neuro: Alert and oriented X 3, Normal speech Results - Vitals Vitals: Vital Signs - 24 hr 02/29/24 02/29/24 18:38 18:48 Temperature 36.8 C Heart Rate 66 Respiratory 18 Rate Blood Pressure 142/90 H Blood Pressure 142/90 H [Left] Blood Pressure 137/85 H [Right] O2 Saturation 98 Oxygen O2 Source Room air - EKG (time done) 1852 EKG releavant findings:: EKG personally interpreted by author of this note. Relevant findings are: Rate: Rate (enter#) (61) Rhythm: NSR Bement: Normal Intervals: Normal [place] QRS: Normal Ischemia: Normal ST segments - Labs Labs: Laboratory Tests 02/29/24 02/29/24 18:31 18:31 WBC 6.1 RBC 4.51 L Hgb 14.0 Hct 42.6 MCV 94.5 H MCH 31.0 MCHC 32.9 RDW 13.0 Plt Count 225 MPV 9.5 Neut # (Auto) 3.6 Lymph # (Auto) 1.9 [place]cher # (Auto) 0.5 Eos # (Auto) 0.2 Baso # (Auto) 0.0 Absolute Nucleated RBC 0.00 Nucleated RBC % 0.0 Sodium 139 Potassium 4.1 Chloride 104 Carbon Dioxide 30 Anion Gap 5.0 L BUN 15 Creatinine 0.7 Estimated GFR (MDRD) 108 Glucose 95 Calcium 9.5 Total Bilirubin 0.4 AST 22 ALT 9 L Alkaline Phosphatase 57 Troponin I High Sens 6.9 Total Protein 7.6 Albumin 4.7 Globulin 2.9 Albumin/Globulin Ratio 1.6 Lipase 35 PD Medical Decision Making - ED course ED course: He has a history of COPD, no heart disease. He has been more short of breath than anything else. Nothing in the history or physical to suggest thromboembolic disease. EKG and troponin negative for 2 days of symptoms. Really does not sound like unstable angina. Departure - Departure Disposition: 01 Home, Self Care Clinical Impression: Atypical chest pain Dyspnea Qualifiers: Dyspnea type: dyspnea on exertion Qualified Code(s): R06.09 - Other forms of dyspnea Condition: Good Record reviewed to determine appropriate education?: Yes Instructions: ED Dyspnea Shortness of Breath Prescriptions: Albuterol Sulf [Ventolin Hfa Inhaler] 1 - 2 puffs INH Q4HR PRN #1 each PRN Reason: Shortness Of Air/Wheezing Comments: At this point it does not look like the cause of your shortness of breath and chest symptoms are dangerous. I would recommend following up with your primary care physician with consideration for referral for stress test and lets refill your albuterol inhaler which I sent to [facility] in [place] and see if that is helpful for you. Return for any new or worsening symptoms.
[2024-02-29 18:42] LABS: BASOPHILS % (AUTO) 0.5 %; EOSINOPHILS # (AUTO) 0.2 10^3/uL (0.0-0.7); EOSINOPHILS % (AUTO) 2.6 %; HCT - HEMATOCRIT 42.6 % (42.0-52.0); LYMPHOCYTES # (AUTO) 1.9 10^3/uL (1.5-3.5); LYMPHOCYTES % (AUTO) 30.4 %; MEAN CORPUSCULAR HGB CONC 32.9 g/dL (32.0-36.0); MEAN CORPUSCULAR VOLUME 94.5 fL (80.0-94.0); MEAN PLATELET VOLUME 9.5 fL (7.4-11.4); MONOCYTES # (AUTO) 0.5 10^3/uL (0.0-1.0); MONOCYTES % (AUTO) 8.2 %; NEUTROPHILS # (AUTO) 3.6 10^3/uL (1.5-6.6); NEUTROPHILS % (AUTO) 58.1 %; PLT - PLATELET COUNT 225 10^3/uL (130-450); RED BLOOD COUNT 4.51 10^6/uL (4.70-6.10); WHITE BLOOD COUNT 6.1 x10^3/uL (4.8-10.8)
[2024-02-29 18:59] LABS: ALBUMIN 4.7 g/dL (3.2-5.5); ALBUMIN/GLOBULIN RATIO 1.6 (1.0-2.2); BILIRUBIN,TOTAL 0.4 mg/dL (0.2-1.0); CALCIUM 9.5 mg/dL (8.5-10.3); CREATININE 0.7 mg/dL (0.6-1.3); POTASSIUM 4.1 mmol/L (3.5-4.5); TOTAL PROTEIN 7.6 g/dL (6.4-8.9)
[2024-02-29 19:01] LABS: TROPONIN I HIGH SENSITIVITY 6.9 ng/L (2.3-19.7)
--- NOTE | 2024-02-29 19:22 | XRAY Report ---
PROCEDURE: Chest 1V INDICATIONS: Chest Pain TECHNIQUE: One view of the chest was acquired. COMPARISON: CT chest 09/04/2023. FINDINGS: Surgical changes and devices: None. Lungs and pleura: No pleural effusions or pneumothorax. Lungs are clear. Mediastinum: Mediastinal contours appear normal. Heart size is normal. Bones and chest wall: No suspicious bony lesions. Overlying soft tissues appear unremarkable. IMPRESSION: No acute cardiopulmonary process. Reviewed by: Ricky Barrera MD on 02/29/2024 7:20 PM PDT Approved by: Ricky Barrera MD on 02/29/2024 7:20 PM PDT Station ID: [id number]
[2024-02-29 19:24] VITALS: BP 140/80; O2SAT 96
== END 2024-02-29 19:20 | disposition home or self-care (01) ==
LOC: ED 18:19
DX: R07.89 Other chest pain (principal); R06.09 Other forms of dyspnea; J44.9 Chronic obstructive pulmonary disease, unspecified; E78.00 Pure hypercholesterolemia, unspecified
CPT/HCPCS: 36415; 80053; 83690; 84484; 85025; 93005; 99284

== ENCOUNTER 2024-03-30 09:15 | Outpatient (CLI) | payer MEDICARE, OTHER ==
[2024-03-30] MEDS: ALBUTEROL 1 PUFF INH STA (10:31)
== END 2024-03-30 09:16 | disposition home or self-care (01) ==
LOC: RT 09:15
DX: R06.09 Other forms of dyspnea (principal)
CPT/HCPCS: 94010; 94060